=== PATIENT | female | born 1980 | race Caucasian/White ===

== ENCOUNTER → 2018-06-25 | Outpatient (CLI) | payer BC ==
--- NOTE | 2018-06-25 13:13 | REP ---
Left rib series: Five views. History: Left lower anterior rib pain. The patient reports a fall. Findings: There is no evidence of pneumothorax or hydrothorax. Mediastinum is not widened. Heart size is normal. Multiple views of the left rib cage are presented. There is subtle cortical irregularity of the anterolateral end of the left seventh rib on two of the views suggesting nondisplaced fracture. No other evidence of rib fracture is seen. No bony destructive lesion is seen. Impression: Probable nondisplaced left anterior 7th rib fracture. Electronically Signed by Stevie Horne MD 06/25/2018 03:13 P
== END ==
LOC: M LRY 12:00
PROVIDERS: ATTEND Physician Assistant
DX: R91.8 Other nonspecific abnormal finding of lung field (principal); R07.81 Pleurodynia; V00.211A Fall from ice-skates, initial encounter; Y92.331 Roller skating rink as the place of occurrence of the external cause

== ENCOUNTER → 2019-09-09 | Outpatient (REF) | payer OTHER | LOC: M SFHCLERA 11:08 | PROVIDERS: ATTEND Physician Assistant | DX: L98.9 Disorder of the skin and subcutaneous tissue, unspecified (principal) ==

== ENCOUNTER → 2020-12-10 | Outpatient (CLI) | payer MEDICAID | LOC: M OUTALCOH 08:24 | PROVIDERS: ATTEND Psychiatry & Neurology Psychiatry | DX: F12.20 Cannabis dependence, uncomplicated (principal) ==

== ENCOUNTER 2021-01-09 11:00 | Outpatient (RCR) | payer MEDICAID | END 2021-01-12 | LOC: M OUTALCOH 11:00 | PROVIDERS: ATTEND Psychiatry & Neurology Psychiatry | DX: F12.220 Cannabis dependence with intoxication, uncomplicated (principal); Z72.0 Tobacco use ==

== ENCOUNTER 2021-02-11 14:00 | Outpatient (RCR) | payer MEDICAID | END 2021-02-12 | LOC: M OUTALCOH 14:00 | PROVIDERS: ATTEND Psychiatry & Neurology Psychiatry | DX: F12.20 Cannabis dependence, uncomplicated (principal); Z72.0 Tobacco use ==

== ENCOUNTER → 2021-03-14 | Outpatient (RCR) | payer MEDICAID | LOC: M OUTALCOH 02-13 11:11 | PROVIDERS: ATTEND Psychiatry & Neurology Psychiatry | DX: F12.20 Cannabis dependence, uncomplicated (principal); Z72.0 Tobacco use ==

== ENCOUNTER 2021-04-11 09:00 | Outpatient (RCR) | payer MEDICAID | END 2021-04-14 | LOC: M OUTALCOH 09:00 | PROVIDERS: ATTEND Psychiatry & Neurology Psychiatry | DX: F12.20 Cannabis dependence, uncomplicated (principal); Z72.0 Tobacco use ==

== ENCOUNTER 2021-05-03 09:00 | Outpatient (RCR) | payer MEDICAID | END 2021-05-14 | LOC: M OUTALCOH 09:00 | PROVIDERS: ATTEND Psychiatry & Neurology Psychiatry | DX: F12.20 Cannabis dependence, uncomplicated (principal); Z72.0 Tobacco use ==

== ENCOUNTER 2021-05-29 09:00 | Outpatient (RCR) | payer MEDICAID | END 2021-06-14 | LOC: M OUTALCOH 09:00 | PROVIDERS: ATTEND Psychiatry & Neurology Psychiatry | DX: F12.20 Cannabis dependence, uncomplicated (principal); Z72.0 Tobacco use ==

== ENCOUNTER 2021-07-12 13:00 | Outpatient (RCR) | payer MEDICAID | END 2021-07-15 | LOC: M OUTALCOH 13:00 | PROVIDERS: ATTEND Psychiatry & Neurology Psychiatry | DX: F12.20 Cannabis dependence, uncomplicated (principal); Z72.0 Tobacco use ==

== ENCOUNTER → 2024-07-04 | Outpatient (REF) | LOC: M EMP 13:05 | PROVIDERS: ATTEND Family Medicine | DX: Z11.52 Encounter for screening for COVID-19 (principal) ==

== ENCOUNTER → 2024-07-04 | Outpatient (REF) | LOC: M EMP 11:20 | PROVIDERS: ATTEND Family Medicine | DX: Z53.9 Procedure and treatment not carried out, unspecified reason (principal) ==